=== PATIENT | male | born 1945 | race Caucasian/White ===

== ENCOUNTER 2019-02-26 20:39 | Emergency (ER) | payer SELFPAY ==
[2019-02-26] MEDS ORDERED: SODIUM CHLORIDE 0.9% 500 ML BAG IV* (20:49)
[2019-02-26] MEDS ORDERED: SODIUM CHLORIDE 0.9% 1L BAG IV* (20:49)
[2019-02-26] MEDS ORDERED: CEFEPIME 2GM/50 ML (PMX) 50 ML IVPB (20:49)
[2019-02-26] MEDS ORDERED: VANCOMYCIN 1 GM (PMX) 250 ML IVPB (20:49)
== END 2019-02-26 20:55 | disposition expired ==
LOC: E/R 20:39
DX: I46.9 Cardiac arrest, cause unspecified (principal); I47.2 Ventricular tachycardia
CPT/HCPCS: 31500; 92950; 99291-25